=== PATIENT | female | born 1950 | race Caucasian/White ===

== ENCOUNTER → 2016-08-06 | Outpatient (REF) | payer MEDICARE, OTHER ==
[2016-08-06 14:34] LABS: PERCENT SATURATION 18.8 % (13.2-37.4)
== END ==
LOC: M LAB REF 13:13
PROVIDERS: ATTEND Internal Medicine Nephrology
DX: D50.9 Iron deficiency anemia, unspecified (principal)

== ENCOUNTER 2016-08-14 09:08 | Outpatient (CLI) | payer MEDICARE, OTHER ==
[~2016-08-14] VITALS: Ht 160 cm; Wt 118.2 kg
[2016-08-14] MEDS ORDERED: IRON SUCROSE 25 MG in NS 50 ML IV ONE (09:30)
[2016-08-14] MEDS ORDERED: IRON SUCROSE 475 MG in NS 250 ML IV ONE (10:30)
== END 2016-08-14 14:30 | disposition home or self-care (01) ==
LOC: M INFU 09:08
PROVIDERS: ATTEND Internal Medicine Nephrology
DX: D50.9 Iron deficiency anemia, unspecified (principal); Z79.01 Long term (current) use of anticoagulants; Z79.899 Other long term (current) drug therapy
CPT/HCPCS: 96365; 96366; J1756

== ENCOUNTER → 2017-04-19 | Outpatient (REF) | payer MEDICARE, OTHER ==
[2017-04-23 17:47] LABS: FOLATE 13.2 NG/ML
== END ==
LOC: M LAB REF 16:52
PROVIDERS: ATTEND Family Medicine
DX: D64.9 Anemia, unspecified (principal)

== ENCOUNTER → 2017-05-07 | Outpatient (REF) | payer MEDICARE, OTHER | LOC: M LAB REF 17:09 | PROVIDERS: ATTEND Internal Medicine Nephrology | DX: N18.3 Chronic kidney disease, stage 3 (moderate) (principal); D50.9 Iron deficiency anemia, unspecified ==

== ENCOUNTER 2017-06-03 10:08 | Outpatient (CLI) | payer MEDICARE, OTHER ==
[2017-06-03] MEDS: IRON SUCROSE 25 MG in NS 50 ML IV (10:41)
[2017-06-03] MEDS: IRON SUCROSE 475 MG in NS 250 ML IV (11:59)
== END 2017-06-03 15:45 | disposition home or self-care (01) ==
LOC: M INFU 10:08
DX: D50.9 Iron deficiency anemia, unspecified (principal); Z79.899 Other long term (current) drug therapy; Z79.82 Long term (current) use of aspirin; Z91.048 Other nonmedicinal substance allergy status; Z88.1 Allergy status to other antibiotic agents
CPT/HCPCS: 96365

== ENCOUNTER → 2017-11-26 | Outpatient (CLI) | payer MEDICARE, OTHER | LOC: M RAD 09:03 | DX: N18.3 Chronic kidney disease, stage 3 (moderate) (principal); I12.9 Hypertensive chronic kidney disease with stage 1 through stage 4 chronic kidney disease, or unspecified chronic kidney disease | CPT/HCPCS: 76775 ==

== ENCOUNTER → 2018-10-31 | Outpatient (REF) | payer MEDICARE, OTHER ==
[~2018-10-31] MED LIST: AMLO2.5T3 PO; ASPI81TA85 PO; CARV6.25 PO; CITA20TA6 PO; DICL1GEL3 TD; FEBU40TA PO; LISI40TA PO; MAGN250T9 PO; MULTCAP8 PO; NYST1POW9 TOP; OMEP20CA3 PO; SIMV20TA2 PO; SYNT100T PO; TORS10TA3 PO; TRAZ-252 PO; TRIA1OI TOP; VITA-182 PO; XALA0.007 OU; XARE15TA PO
== END ==
LOC: M LAB REF 17:19
PROVIDERS: ATTEND Family Medicine
DX: M10.9 Gout, unspecified (principal)

== ENCOUNTER → 2018-12-07 | Outpatient (CLI) | payer MEDICARE, OTHER ==
[~2018-12-07] MED LIST changes: -OMEP20CA3 PO; +OMEP20CA4 PO
--- NOTE | 2018-12-07 12:22 | REP ---
CHEST FLUOROSCOPY, SNIFF TEST: Breathing is visualized directly under fluoroscopy with deep inspiration and expiration. At rest there is fairly significant elevation of the right hemidiaphragm with right basilar atelectatic change. With deep inspiration the left hemidiaphragm moves appropriately inferiorly. The right hemidiaphragm demonstrates slight paradoxical elevation and inspiration. Similarly with deep expiration the left hemidiaphragm was appropriately upward while the right hemidiaphragm moves slightly inferiorly in a paradoxical manner. 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 There is appropriate left diaphragmatic excursion. Fluoroscopy time 0.8 minutes. Electronically Signed by Cedric Jansen MD 12/09/2018 12:56 P
== END ==
LOC: M RAD 10:39
PROVIDERS: ATTEND Internal Medicine Pulmonary Disease
DX: J98.6 Disorders of diaphragm (principal)

== ENCOUNTER → 2019-02-06 | Outpatient (CLI) | payer MEDICARE, OTHER ==
[~2019-02-06] MED LIST changes: +CVS50CAP PO; +CYAN2500 SL; +D 1010004 PO; -FEBU40TA PO; +FEBU40TA4 PO; +HYDR-4571 PO; +MULTCAP PO
[2019-02-06 13:52] LABS: HEMATOCRIT 37.6 % (36.0-47.0); HEMOGLOBIN 12.1 g/dl (12.0-15.5); MEAN CORPUSCULAR HEMOGLOBIN 31.7 pg (27.0-33.0); MEAN CORPUSCULAR HGB CONC 32.2 g/dl (32.0-36.5); MEAN CORPUSCULAR VOLUME 98.4 fl (80.0-96.0); PLATELET COUNT, AUTOMATED 299 10^3/uL (150-450); RED BLOOD COUNT 3.82 10^6/uL (4.00-5.40); WHITE BLOOD COUNT 5.9 10^3/uL (4.0-10.0)
[2019-02-06 14:12] LABS: INR 1.07; PROTHROMBIN TIME 13.6 SECONDS (11.8-14.0)
[2019-02-06 14:13] LABS: PARTIAL THROMBOPLASTIN TIME 25.4 SECONDS (25.0-38.4)
[2019-02-06 14:17] LABS: CALCIUM LEVEL 9.2 MG/DL (8.8-10.2); CREATININE FOR GFR 1.57 MG/DL (0.55-1.30); GLOMERULAR FILTRATION RATE 34.9 (>45)
[2019-02-06 14:24] LABS: APPEARANCE, URINE CLEAR (CLEAR); BACTERIA, URINE AUTO NEGATIVE (NEGATIVE); BILIRUBIN, URINE AUTO NEGATIVE (NEGATIVE); BLOOD, URINE BLOOD NEGATIVE (NEGATIVE); COLOR, URINE YELLOW (YELLOW); GLUCOSE, URINE (UA) AUTO NEGATIVE (NEGATIVE); KETONE, URINE AUTO NEGATIVE (NEGATIVE); LEUKOCYTE ESTERASE, URINE AUTO NEGATIVE (NEGATIVE); MUCUS, URINE SMALL (NEGATIVE); NITRITE, URINE AUTO NEGATIVE (NEGATIVE); PROTEIN, URINE AUTO NEGATIVE (NEGATIVE); RBC, URINE AUTO 1 /HPF (0-3); SPECIFIC GRAVITY URINE AUTO 1.014 (1.002-1.035); SQUAMOUS EPITHELIAL CELL UR AU 2 /HPF (0-6); UROBILINOGEN, URINE AUTO 0.2 mg/dL (0.0-2.0); WBC, URINE AUTO 1 /HPF (0-3)
[2019-02-06 14:25] LABS: ABG BASE EXCESS -1.5 (-2.0-2.0); ABG HCO3 22.5 MEQ/L (22.0-26.0); ABG O2 SATURATION 96.8 % (95.0-99.0); ABG PARTIAL PRESSURE CO2 35.6 mmHg (35.0-45.0); ABG PARTIAL PRESSURE O2 86.2 mmHg (75.0-100.0); ABG STANDARD HCO3 23.2 MEQ/L (22.0-26.0); ABG TOTAL CO2 23.6 MEQ/L (23.0-31.0); ABG pH (ARTERIAL) 7.419 UNITS (7.350-7.450)
--- NOTE | 2019-02-06 16:13 | REP ---
CHEST, TWO VIEWS: Two views of the chest are performed. Comparison 01/07/2011. There is moderate elevation of the right hemidiaphragm. There is right basilar atelectatic change. The left lung is clear. Heart is not significantly enlarged. Mediastinal silhouette is unremarkable. There are degenerative changes of the spine. IMPRESSION: Elevation of right hemidiaphragm with right base atelectatic change. Electronically Signed by Cedric Jansen MD 02/06/2019 04:26 P
--- NOTE | 2019-02-07 09:00 | ECGEPIP ---
[facility] Test Date: 2019-02-06 Pat Name: YOHAN ESCAMILLA Department: Room: - Gender: Female Configuration Management Administrator: : 1950 Requested By: James Egan Order Number: [id number] Reading MD: Mal Will Measurements Intervals [place] Rate: 60 P: 20 AL: 178 QRS: 64 QRSD: 113 T: 51 QT: 410 QTc: 411 Interpretive Statements SINUS RHYTHM Intraventricular conduction delay Nonspecific T wave abnormality Comparison tracing not on file Electronically Signed on 02-07-2019 8:59:37 EDT by Mal Will
== END ==
LOC: EDSTATUS 07:48 → M ADMPAT 10:00
PROVIDERS: ATTEND Thoracic Surgery (Cardiothoracic Vascular Surgery)
DX: J98.6 Disorders of diaphragm (principal)

== ENCOUNTER 2019-02-14 06:10 | Inpatient (IN) | payer MEDICARE, OTHER ==
[2019-02-06 14:00] VITALS: BP 144/85
[2019-02-14] VITALS (10 sets, daily range): BP systolic 101–114; BP diastolic 51–57
[~2019-02-14] VITALS: Ht 157.5 cm; Wt 116.1 kg
[~2019-02-14 06:10] MED LIST changes: -HYDR-4571 PO; +LIDOCAINE 1% MDV 20ML VIAL SQ PRN; +LR 1,000 ML IV ONE; +MIDAZOLAM INJ 2 MG/2 ML VIAL (J2250) IV SCH; +VANCOMYCIN HCL 1,000 MG, VIAL MATE ADAPTER 1 EACH in D5W 250 ML IV ONE; +fentaNYL 100 MCG/2 ML INJECTION (J3010) IV SCH
[2019-02-14] MEDS ORDERED: MIDAZOLAM INJ 2 MG/2 ML VIAL (J2250) As Ordered ONE (06:42)
[2019-02-14] MEDS ORDERED: fentaNYL 100 MCG/2 ML INJECTION (J3010) As Ordered ONE (06:42)
[2019-02-14] MEDS ORDERED: BUPIVACAINE/EPIN 0.25% 30 ML VIAL As Ordered ONE (06:52)
[2019-02-14] MEDS ORDERED: CETACAINE SPRAY 5GM As Ordered ONE (06:52)
[2019-02-14] MEDS ORDERED: BUPIVACAINE LIPOSOME/PF 1.3% 20ML VIAL (13.3MG/ML)(EXPAREL)(C9290 PER1MG) As Ordered ONE (06:53)
[2019-02-14] MEDS ORDERED: BUPIVACAINE HCL 0.5% 30 ML VIAL As Ordered ONE (06:53)
[2019-02-14] MEDS ORDERED: fentaNYL 250 MCG/5 ML INJECTION (J3010) As Ordered ONE (06:59)
[2019-02-14] MEDS ORDERED: LIDOCAINE 2% INJ 100 MG/5 ML SDV (FOR ANES.) As Ordered ONE (07:01)
[2019-02-14] MEDS ORDERED: ROCURONIUM BROMIDE 50 MG/5 ML VIAL As Ordered ONE ×3 (07:01→11:17)
[2019-02-14] MEDS ORDERED: dexameTHASONE 4 MG/ML 1ML VIAL (J1100) As Ordered ONE (07:01)
[2019-02-14] MEDS ORDERED: PROPOFOL 200 MG/20 ML VIAL As Ordered ONE (07:01)
[2019-02-14] MEDS ORDERED: ONDANSETRON 4MG/2ML VIAL (J2405) As Ordered ONE (07:01)
[2019-02-14] MEDS ORDERED: DESFLURANE 240 ML INHALANT As Ordered ONE (07:27)
[2019-02-14] MEDS ORDERED: MUPIROCIN 2% OINT 22 GM TUBE As Ordered ONE (08:22)
[2019-02-14] MEDS ORDERED: METOCLOPRAMIDE INJ 10MG/2ML VIAL (J2765) IV PRN (09:00)
[2019-02-14] MEDS ORDERED: ONDANSETRON 4MG/2ML VIAL (J2405) IV PRN ×4 (09:00→14:30)
[2019-02-14] MEDS ORDERED: WALLBOXKEY XX PRN (09:00)
[2019-02-14] MEDS ORDERED: NALOXONE INJ 0.4 MG/1 ML VIAL (J2310) IV PRN (09:00)
[2019-02-14] MEDS: LISINOPRIL 40 MG TAB PO SCH (09:00)
[2019-02-14] MEDS ORDERED: LATANOPROST 0.005% OPHTH SOLN 2.5 ML OU SCH (09:00)
[2019-02-14] MEDS ORDERED: EPIDURAL/PCA KEYS XX PRN (09:00)
[2019-02-14] MEDS ORDERED: ePHEDrine SULFATE 25 MG/5 ML(5MG/ML) SYRINGE As Ordered ONE (09:36)
[2019-02-14] MEDS ORDERED: PHENYLephrine HCL 500 MCG/5 ML (100MCG/ML) SYRINGE (J2370) As Ordered ONE (09:37)
[2019-02-14] MEDS ORDERED: BUPIVACAINE HCL 0.25% 30 ML VIAL As Ordered ONE (10:19)
[2019-02-14] MEDS ORDERED: SUGAMMADEX SODIUM 500 MG/5 ML VIAL (BRIDION) As Ordered ONE (11:18)
[2019-02-14] MEDS ORDERED: KETOROLAC 30 MG/ML VIAL (J1885) IV SCH (12:00)
[2019-02-14] MEDS ORDERED: TRIAMCINOLONE ACET 0.1% OINTMENT 15 GM TOP PRN (12:15)
[2019-02-14] MEDS: FENTANYL/BUPIVACAINE/NACL BAG 250 ML EPIDURAL SCH ×2 (12:36→13:25)
[2019-02-14 13:00] LABS: BASO % 0.2 % (0.0-1.0); EOS % 0.1 % (0.0-3.0); HEMATOCRIT 38.4 % (36.0-47.0); HEMOGLOBIN 12.1 g/dl (12.0-15.5); LYMPH # 0.7 10^3/uL (1.5-5.0); LYMPH % 7.3 % (24.0-44.0); MEAN CORPUSCULAR HEMOGLOBIN 30.9 pg (27.0-33.0); MEAN CORPUSCULAR HGB CONC 31.5 g/dl (32.0-36.5); MONO # 0.3 10^3/uL (0.0-0.8); MONO % 2.9 % (0.0-5.0); NEUTROPHILS # 8.4 10^3/uL (1.5-8.5); NEUTROPHILS % 89.3 % (36.0-66.0); PLATELET COUNT, AUTOMATED 259 10^3/uL (150-450); RED BLOOD COUNT 3.92 10^6/uL (4.00-5.40); WHITE BLOOD COUNT 9.4 10^3/uL (4.0-10.0)
[2019-02-14] MEDS ORDERED: PERCOCET 5MG/325MG TAB PO PRN ×4 (13:00→14:30)
[2019-02-14] MEDS ORDERED: HEPARIN SOD (PORCINE) 5000 UNITS/ML VIAL SC SCH (13:00)
[2019-02-14] MEDS ORDERED: LEVALBUTEROL 1.25 MG/0.5 ML CONCENTRATE NEB NEB PRN (13:00)
[2019-02-14] MEDS ORDERED: LR 1,000 ML IV SCH ×2 (13:00→14:30)
[2019-02-14] MEDS ORDERED: BISACODYL 10 MG SUPP PR PRN (13:00)
[2019-02-14] MEDS ORDERED: ACETAMINOPHEN TAB 650MG DOSE (2X325MG) PO PRN (13:00)
[2019-02-14] MEDS: fentaNYL 100 MCG/2 ML INJECTION (J3010) IV PRN ×4 (13:00→13:15)
[2019-02-14] MEDS ORDERED: HYDROMORPHONE HCL 0.5 MG/ 0.5 ML SYRINGE (J1170 PER 1) IV PRN ×2 (13:00→14:30)
[2019-02-14] MEDS ORDERED: NORCO, ANEXSIA 5/325MG TABLET (HYDROcodone/ACETAMINOPHEN) PO PRN (13:00)
[2019-02-14] MEDS ORDERED: KCL 20MEQ IN D5/NS 1000ML 1,000 ML IV SCH (13:00)
[2019-02-14] MEDS ORDERED: zolPIDEM TARTRATE 5 MG TAB PO PRN (13:00)
[2019-02-14 13:04] LABS: ABG HCO3 23.2 MEQ/L (22.0-26.0); ABG O2 SATURATION 95.2 % (95.0-99.0); ABG PARTIAL PRESSURE CO2 45.7 mmHg (35.0-45.0); ABG PARTIAL PRESSURE O2 82.4 mmHg (75.0-100.0); ABG TOTAL CO2 24.6 MEQ/L (23.0-31.0); ABG pH (ARTERIAL) 7.323 UNITS (7.350-7.450)
[2019-02-14 13:19] LABS: CALCIUM LEVEL 9.2 MG/DL (8.8-10.2); CREATININE FOR GFR 1.42 MG/DL (0.55-1.30); GLOMERULAR FILTRATION RATE 39.2 (>45); POTASSIUM SERUM 4.1 MEQ/L (3.5-5.1)
[2019-02-14] MEDS ORDERED: fentaNYL 100 MCG/2 ML INJECTION (J3010) IV PRN (14:30)
[2019-02-14] MEDS: SIMVASTATIN 20 MG TAB PO SCH (14:33)
[2019-02-14] MEDS: LEVALBUTEROL 1.25 MG/0.5 ML CONCENTRATE NEB NEB SCH ×2 (14:49→19:29)
--- NOTE | 2019-02-14 15:19 | REP ---
PORTABLE CHEST: AP portable view of the chest is performed and compared to a prior study of 02/06/2019. There is a right chest tube now seen overlying the right lower lung. Another chest tube just superior to that demonstrates side port just lateral to the ribcage. There is a very small right pneumothorax. The left hemidiaphragm is slightly higher than the right. There appear to be scattered mild atelectatic changes in both lungs. Heart and mediastinum appear magnified. Electronically Signed by Cedric Jansen MD 02/14/2019 04:00 P
[2019-02-14] MEDS: CARVedilol 6.25 MG TAB PO SCH (21:00)
[2019-02-14] MEDS: LATANOPROST 0.005% OPHTH SOLN 2.5 ML OU SCH (21:27)
[2019-02-14] MEDS: HEPARIN SOD (PORCINE) 5000 UNITS/ML VIAL SC SCH (21:28)
[2019-02-14] MEDS: DOCUSATE SODIUM 100 MG CAP PO SCH (21:28)
[2019-02-14] MEDS: diphenhydrAMINE INJ 50MG/ML VIAL (J1200) IV PRN (21:35)
[2019-02-15] VITALS (7 sets, daily range): BP systolic 100–119; BP diastolic 53–57
[2019-02-15] MEDS: LEVALBUTEROL 1.25 MG/0.5 ML CONCENTRATE NEB NEB SCH ×4 (00:26→20:12)
[2019-02-15 05:28] LABS: HEMATOCRIT 33.4 % (36.0-47.0); HEMOGLOBIN 10.8 g/dl (12.0-15.5); LYMPH # 0.9 10^3/uL (1.5-5.0); LYMPH % 9.1 % (24.0-44.0); MEAN CORPUSCULAR HEMOGLOBIN 31.9 pg (27.0-33.0); MEAN CORPUSCULAR HGB CONC 32.3 g/dl (32.0-36.5); MEAN CORPUSCULAR VOLUME 98.5 fl (80.0-96.0); MONO # 0.8 10^3/uL (0.0-0.8); MONO % 8.4 % (0.0-5.0); NEUTROPHILS # 8.1 10^3/uL (1.5-8.5); NEUTROPHILS % 82.2 % (36.0-66.0); PLATELET COUNT, AUTOMATED 223 10^3/uL (150-450); RED BLOOD COUNT 3.39 10^6/uL (4.00-5.40); WHITE BLOOD COUNT 9.9 10^3/uL (4.0-10.0)
[2019-02-15 05:55] LABS: CALCIUM LEVEL 8.7 MG/DL (8.8-10.2); CREATININE FOR GFR 1.36 MG/DL (0.55-1.30); GLOMERULAR FILTRATION RATE 41.2 (>45); POTASSIUM SERUM 4.7 MEQ/L (3.5-5.1)
[2019-02-15 05:59] LABS: ABG BASE EXCESS -1.7 (-2.0-2.0); ABG HCO3 23.7 MEQ/L (22.0-26.0); ABG O2 SATURATION 98.6 % (95.0-99.0); ABG PARTIAL PRESSURE O2 138.7 mmHg (75.0-100.0); ABG STANDARD HCO3 23.1 MEQ/L (22.0-26.0); ABG TOTAL CO2 25.1 MEQ/L (23.0-31.0)
--- NOTE | 2019-02-15 08:56 | REP ---
PA and lateral chest: Comparison is 02/14/2019. There are a few right thoracotomy tubes as previously. The side-hole of the inferior most thoracotomy tube is at the pleural surface along the right lateral chest wall and the tube appears to have retracted slightly from the prior study. The side-hole of the more superior thoracotomy tube is within the soft tissues along the right lateral chest wall as previously. There is a small volume of subcutaneous emphysema inferolaterally on the right, unchanged. I suspect there is a small sub pulmonic pneumothorax on the right. There is no apical pneumothorax. The right lung is otherwise clear. There is minor atelectasis inferiorly in the left lung, left lung otherwise clear. Cardiac size is normal. The leroy, mediastinum, skeletal structures are unremarkable. There is an epidural catheter, unchanged. Electronically Signed by Cedric Cameron MD 02/15/2019 08:48 A
[2019-02-15] MEDS: LISINOPRIL 40 MG TAB PO SCH (09:00)
[2019-02-15] MEDS ORDERED: traZODone 50 MG TAB PO SCH (09:00)
[2019-02-15] MEDS: MOM 30ML SUSPENSION UDC PO SCH (09:00)
[2019-02-15] MEDS: CARVedilol 6.25 MG TAB PO SCH ×2 (09:00→20:34)
--- NOTE | 2019-02-15 09:03 | IPN ---
DATE: 02/15/2019 This is the first postoperative day for Mrs. Hutchins who has had a stable and uneventful night of surgery. Today, she is actually pain free and sitting up very comfortably. She states she is breathing better. Her vital signs show a maximum temperature (T-max) of 98.6 with a heart rate that ranges between 76 and 80 and in sinus rhythm, respiratory rate of 16-18 without the use of accessory muscles, who is 94-96% saturated on 2 liters of nasal cannula and has blood pressures ranging between 119/57 to 106/54. Her intake and output over the past 24 hours is recorded as 3635 in and 860 out for a positivity of 2800 mL. She has put out a total of 310 mL from the chest tube up to midnight and 80 mL since midnight. She weighs 115.4 kg today compared to 112 kg yesterday. On physical examination, her lungs show faint crackles during inspiration on the right side which mostly clear with coughing. Percussion note is full to the diaphragm. Cardiac exam is without murmurs, clicks, gallops or rubs. I cannot feel his point of maximum impulse (PMI). S1 and S2 are normal. Abdomen is soft and nontender. Bowel sounds are present but very hypoactive. She has not had flatus. No costovertebral angle (CVA) tenderness. There is no hepatomegaly that I can feel through obesity. Extremities show 1+ pretibial edema with no calf tenderness. No differential swelling of the upper extremities. Skin is warm, dry and perfused without cyanosis or mottling including that of the nail beds and knees. Neck is supple. There is no jugular venous distention. No subcutaneous emphysema. Trachea is midline. Mouth shows her mucous membranes to be pink and moist. Lips and commissures are without lesions. There is no thrush. Neurologic shows II-XII intact along with gross motor and gross sensation intact. Gait is not tested. Psychiatric showed her to be awake, alert and oriented times three with appropriate and affect and conversational. Her white count today is 9.9 with hemoglobin and hematocrit of 10.8 and 33.4 respectively with a platelet count of 223. Differential shows 82% neutrophils, 9% lymphocytes, 8% monocytes. There are no immature forms or toxic granulations. Her electrolytes are essentially normal with a BUN and creatinine of 27 and 1.36, improved from yesterday's 31 and 1.42. Glucose is 126 with calcium 8.7. Blood gases today show a pH 7.36, pCO2 43, pO2 138. Base excess is -1.7. Her chest x-ray shows her lungs fully expanded to the chest wall. There is a slight opacity at the right costophrenic angle on the PA view. It looks to be atelectasis. It could also be the imbrication of the diaphragm. There is no subcutaneous emphysema and the mediastinum is in the midline. The lung is much more expanded to the chest wall than it was preoperatively and her right diaphragm is now at the level of the left diaphragm. IMPRESSION: 1. Right diaphragmatic paralysis. 2. Hypertension. 3. Prior atrial fibrillation status post ablation. 4. Postop day #1 status post diaphragmatic plication. 5. 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 6. Gastroesophageal reflux disease. PLAN AND DISCUSSION: I will transfer her to the progressive care unit (PCU) today. I will discontinue the arterial line. Will continued her chest tube on suction
--- NOTE | 2019-02-15 09:26 | RO ---
DATE OF PROCEDURE: 02/14/2019 PREPROCEDURE DIAGNOSIS: Right diaphragmatic paralysis. POSTPROCEDURE DIAGNOSIS: Right diaphragmatic paralysis. PROCEDURE: Right diaphragmatic plication via thoracotomy. Bronchoscopy and five-level rib block. SURGEON: Dr. James Spain. DETECTIVE CAPTAIN: ANESTHESIA: General. FINDINGS: The diaphragm was quite floppy. It was plicated to reduce its extent in the chest. Bronchoscopy revealed a normal branch and tracheobronchial tree without any endobronchial lesions and with scant secretions. DESCRIPTION OF PROCEDURE: Under satisfactory general anesthesia and single lumen tube endotracheal intubation, bronchoscope was placed into the tracheobronchial tree with the above results. Each segment and side segment was thoroughly inspected and there were no endobronchial lesions. The patient was then turned to the left lateral decubitus position and prepped and draped in usual sterile fashion. Three thoracostomy incisions were first made with the fluoroscope being placed just below the scapula and in the proximal 5th intercostal space. Insufflation was applied and the diaphragm could be assessed and the position of the incision could be determined. The diaphragm was marked with clips where it was felt that it would plicate and come together. Incision was then made under fluoroscopic control. Latissima dorsi was divided. It was a posterolateral incision. The diaphragm was visualized. Where the clips had been placed, the first suture of #2-0 Prolene with pericardium pledgets was then placed as a U stitch. This then started the plication which went from anteromedial to posterolateral. Approximately 20 stitches were needed. The posterior portion of the diaphragm was imbricated beneath the diaphragm into the abdomen and the anteromedial portion was situated above the diaphragm. The anteromedial portion of the plication was then tacked down with the same pledget sutures as the plication was done. This was a slow and tedious process of assessing each stitch and the tension on the diaphragm and the chest wall. A five-level rib block was then placed consisting of Marcaine and Exparel. Two chest tubes were placed, one posterolaterally in the costophrenic angle and one anteriorly. Both were 24 tubes, one curved, one straight. After achieving adequate hemostasis, the lung was re-inflated and the ribs were re-approximated by use of #1-0 Prolene [id number] pericostal sutures. Latissimus dorsi by the use of running 0 Vicryl suture, subcutaneous tissue was use of #3-0 Vicryl suture and the skin by use of #3-0 Monocryl subcuticular suture. The patient tolerated the procedure well and left the operating room in satisfactory condition for the recovery room.
[2019-02-15] MEDS: DOCUSATE SODIUM 100 MG CAP PO SCH ×2 (09:37→21:12)
[2019-02-15] MEDS: LEVOTHYROXINE 100MCG TABLET (0.1MG) PO SCH (09:37)
[2019-02-15] MEDS: CitaloPRAM (CeleXA) 20 MG TAB PO SCH (09:37)
[2019-02-15] MEDS: PANTOPRAZOLE 40MG TAB (PROTONIX) PO SCH (09:37)
[2019-02-15] MEDS: SIMVASTATIN 20 MG TAB PO SCH (09:37)
[2019-02-15] MEDS: HEPARIN SOD (PORCINE) 5000 UNITS/ML VIAL SC SCH ×2 (09:38→21:13)
[2019-02-15] MEDS: FENTANYL/BUPIVACAINE/NACL BAG 250 ML EPIDURAL SCH (13:06)
[2019-02-15] MEDS: diphenhydrAMINE INJ 50MG/ML VIAL (J1200) IV PRN (16:54)
[2019-02-15] MEDS: LATANOPROST 0.005% OPHTH SOLN 2.5 ML OU SCH (21:12)
[2019-02-15] MEDS: traZODone 50 MG TAB PO SCH (21:12)
[2019-02-15] MEDS ORDERED: FLUBLOK(EGG FREE)(QUAD)INFLUENZA VACC 0.5ML SYRINGE (90682)18YRS&OLDER IM PRN (23:45)
[2019-02-16] VITALS: BP 117/56
[2019-02-16] MEDS: LEVALBUTEROL 1.25 MG/0.5 ML CONCENTRATE NEB NEB SCH ×4 (02:20→20:17)
[2019-02-16 04:00] VITALS: BP 92/49
[2019-02-16 05:56] LABS: BASO % 0.2 % (0.0-1.0); EOS % 0.3 % (0.0-3.0); HEMATOCRIT 32.5 % (36.0-47.0); HEMOGLOBIN 10.6 g/dl (12.0-15.5); LYMPH % 20.7 % (24.0-44.0); MEAN CORPUSCULAR HEMOGLOBIN 32.2 pg (27.0-33.0); MEAN CORPUSCULAR HGB CONC 32.6 g/dl (32.0-36.5); MEAN CORPUSCULAR VOLUME 98.8 fl (80.0-96.0); MONO # 1.1 10^3/uL (0.0-0.8); MONO % 12.1 % (0.0-5.0); NEUTROPHILS # 6.3 10^3/uL (1.5-8.5); NEUTROPHILS % 66.3 % (36.0-66.0); PLATELET COUNT, AUTOMATED 218 10^3/uL (150-450); RED BLOOD COUNT 3.29 10^6/uL (4.00-5.40); WHITE BLOOD COUNT 9.5 10^3/uL (4.0-10.0)
[2019-02-16 06:18] LABS: CALCIUM LEVEL 8.3 MG/DL (8.8-10.2); CREATININE FOR GFR 1.35 MG/DL (0.55-1.30); GLOMERULAR FILTRATION RATE 41.5 (>45); POTASSIUM SERUM 4.5 MEQ/L (3.5-5.1)
[2019-02-16 07:42] VITALS: BP 108/55
--- NOTE | 2019-02-16 08:25 | REP ---
Chest x-ray: Two views. History: Status post dictation of the diaphragm. Comparison chest x-ray February 15, 2019 and February 06, 2019. Findings: EKG electrodes are noted. An epidural catheter is visible. There are two right-sided chest tubes. One of these has its side hole at the lateral rib margin outside the chest and the other chest tube is completely extrathoracic adjacent to the chest wall. These are unchanged. There is discoid atelectasis in the right base. Mild plate-like atelectasis is seen in the left base. Subcutaneous emphysema is noted tracking in the soft tissues along the right axilla and in the base of the neck. Heart is not enlarged. Impression: Two Right chest tubes, one of which is extrathoracic. Bibasilar discoid atelectasis. Electronically Signed by Karl Callahan MD 02/16/2019 08:16 A
[2019-02-16] MEDS: CARVedilol 6.25 MG TAB PO SCH ×2 (09:00→20:05)
[2019-02-16] MEDS: DOCUSATE SODIUM 100 MG CAP PO SCH ×2 (09:00→21:04)
[2019-02-16] MEDS: MOM 30ML SUSPENSION UDC PO SCH (09:00)
[2019-02-16] MEDS: LISINOPRIL 40 MG TAB PO SCH (09:00)
[2019-02-16] MEDS: HEPARIN SOD (PORCINE) 5000 UNITS/ML VIAL SC SCH ×2 (09:49→21:04)
[2019-02-16] MEDS: PANTOPRAZOLE 40MG TAB (PROTONIX) PO SCH (09:49)
[2019-02-16] MEDS: LEVOTHYROXINE 100MCG TABLET (0.1MG) PO SCH (09:49)
[2019-02-16] MEDS: CitaloPRAM (CeleXA) 20 MG TAB PO SCH (09:49)
--- NOTE | 2019-02-16 10:24 | IPN ---
DATE: 02/16/2019 This is now Mrs. Hutchins's second postoperative day. She is very comfortable and her pain is being well controlled with the epidural. She is breathing well. In fact, she states she is breathing better than she was preoperatively. She is now passing flatus but no bowel movement as of yet. There is no abdominal pain. Her vital signs show a maximum temperature (Tmax) of 99.1 with a heart rate that ranges between 78-81 in a sinus rhythm, respiratory rate of 18-20 without the use of accessory muscles, who is 93-94% saturated on 2 liters of nasal cannula and whose blood pressure is ranging between 92/49-117/56. Her intake and output for the past 24 hours has been recorded as 1265 in and 1325 out for a negativity of 60 mL. She has put 185 mL from the chest tube and there is no air leak. Weight 114.8 kg today compared to 115.4 kg yesterday and 112 kg on admission. On physical examination, she has some faint rales and rhonchi on the right side most of which clear with coughing. Percussion note is full to the diaphragm. Left side shows normal vesicular sounds. Cardiac exam is without murmurs, clicks, gallops or rubs. I cannot feel her point of maximum impulse (PMI). S1 and S2 are normal. Abdomen is soft and nontender. Bowel sounds are present. There is no hepatomegaly, no costovertebral angle (CVA) tenderness. Extremities show no pretibial edema, no calf tenderness. No differential swelling of the upper extremities. Skin is warm, dry and perfused without cyanosis or mottling including that of the nail beds and knees. Neck is supple. There is no jugular venous distention, no subcutaneous emphysema. Trachea is midline. Mouth shows her mucous membranes to be pink and moist. Lips and commissures are without lesions. There is no thrush. Eyes show her eyes to be equal and reactive. Extraocular muscles intact. Sclerae nonicteric. Neuro shows II-XII intact along with gross motor and gross sensation intact. Gait is not tested, and psychiatric shows her to be awake, alert and oriented times three with appropriate and affect and conversational. Her white count today is 9.5 with hemoglobin and hematocrit of 10.6 and 32.5, unchanged from yesterday, with a platelet count of 218. Differential shows 66% neutrophils, 20% lymphocytes, and 12% monocytes. There are no immature forms, no toxic granulations. Her electrolytes are normal with a BUN and creatinine of 32 and 1.35, unchanged from yesterday of 27 and 1.36. Glucose is 116 with a calcium of 8.5. There are no blood gases on her today. Her chest x-ray today shows some atelectasis in the right costophrenic angle. The anterior chest tube is now out of the chest. Lung is fully expanded to the chest wall and the right diaphragm is at the level of the left diaphragm. IMPRESSION: 1. Right diaphragmatic paralysis. 2. Postoperative day # 2 status post right diaphragmatic plication. 3. Hypertension. 4. Prior atrial fibrillation status post ablation. 5. 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 6. Gastroesophageal reflux disease. PLAN AND DISCUSSION: It looks as though her chest tubes have slipped outside of her chest. The lung is fully expanded to the chest wall. She has put minimally out, and therefore, I am going to remove the chest tubes.
[2019-02-16 11:58] VITALS: BP 100/53
[2019-02-16] MEDS: FENTANYL/BUPIVACAINE/NACL BAG 250 ML EPIDURAL SCH (11:58)
[2019-02-16 16:00] VITALS: BP 119/65
[2019-02-16 20:00] VITALS: BP 116/57
[2019-02-16] MEDS: LATANOPROST 0.005% OPHTH SOLN 2.5 ML OU SCH (21:03)
[2019-02-16] MEDS: traZODone 50 MG TAB PO SCH (21:04)
[2019-02-16] MEDS: SIMVASTATIN 20 MG TAB PO SCH (21:04)
[2019-02-17] VITALS (7 sets, daily range): BP systolic 112–131; BP diastolic 56–63
[2019-02-17] MEDS: LEVALBUTEROL 1.25 MG/0.5 ML CONCENTRATE NEB NEB SCH ×5 (02:00→23:57)
[2019-02-17 05:10] LABS: BASO % 0.4 % (0.0-1.0); EOS # 0.2 10^3/uL (0.0-0.5); EOS % 2.5 % (0.0-3.0); HEMATOCRIT 32.5 % (36.0-47.0); HEMOGLOBIN 10.4 g/dl (12.0-15.5); LYMPH # 2.2 10^3/uL (1.5-5.0); LYMPH % 28.6 % (24.0-44.0); MEAN CORPUSCULAR HEMOGLOBIN 31.7 pg (27.0-33.0); MEAN CORPUSCULAR VOLUME 99.1 fl (80.0-96.0); MONO # 0.9 10^3/uL (0.0-0.8); MONO % 11.4 % (0.0-5.0); NEUTROPHILS # 4.3 10^3/uL (1.5-8.5); NEUTROPHILS % 56.8 % (36.0-66.0); PLATELET COUNT, AUTOMATED 212 10^3/uL (150-450); RED BLOOD COUNT 3.28 10^6/uL (4.00-5.40); WHITE BLOOD COUNT 7.5 10^3/uL (4.0-10.0)
[2019-02-17 05:29] LABS: CALCIUM LEVEL 8.6 MG/DL (8.8-10.2); CREATININE FOR GFR 1.27 MG/DL (0.55-1.30); GLOMERULAR FILTRATION RATE 44.5 (>45); POTASSIUM SERUM 4.4 MEQ/L (3.5-5.1)
--- NOTE | 2019-02-17 08:15 | REP ---
PA and lateral chest: Comparison is 02/16/2019. One of the two previous right thoracotomy tubes has been removed. The side-hole of the remaining thoracotomy tube is in the soft tissues of the right lateral chest wall, as previously. There is no pneumothorax. There is persisting atelectasis in the right lower lobe, unchanged. The right upper lobe remains clear. Left lung remains clear. Cardiac size is normal. The epidural catheter is unchanged. Impression: No significant interval change except that one of the previous two right thoracotomy tubes has been removed. The side-hole of the remaining right thoracotomy tube is in the soft tissues of the right lateral chest wall, as previously. Electronically Signed by Cedric Cameron MD 02/17/2019 08:06 A
--- NOTE | 2019-02-17 09:34 | IPN ---
DATE: 02/17/2019 This is now Mrs. Hutchins's third postoperative day. Her pain is being again well controlled in that she has almost none. The epidural is still in. Her vital signs show a T-max of 99.5 with a heart rate that ranges between 75 and 61 and is sinus rhythm, respiratory rate of 16 to 20 without the use of accessory muscles, who is 89-95% saturated on 1 liter nasal cannula and whose blood pressure is ranging between 119/65 to 122/59. Her intake and output the past 24 hours has been recorded as 600 in and 1760 out for a negativity of 1100 mL. She has put out 415 mL from her chest tubes. The anterior chest tube was out of the chest and was removed yesterday, and she has only put out 62 mL in the last 8 hours. Weight 114.5 kg today compared to 114.8 kg yesterday. Her physical examination, shows her lungs have equal breath sounds on either side. Percussion note is full to the diaphragm. There is still some faint rhonchi, most of which clear with coughing. Cardiac exam is without murmurs, clicks, gallops or rubs. I cannot feel her point of maximum impulse (PMI). S1 and S2 are normal. Abdomen is soft and nontender. Bowel sounds are present. There is no hepatomegaly, no costovertebral angle (CVA) tenderness. Extremities show no pretibial edema, no calf tenderness. No differential swelling of the upper extremities. Skin is warm, dry and perfused without cyanosis or mottling including that of the nail beds and knees. Neck is supple. There is no jugular venous distention, no subcutaneous emphysema. Trachea is midline. Mouth shows her mucous membranes to be pink and moist. Lips and commissures are without lesions. There is no thrush. Eyes show her eyes to be equal and reactive. Extraocular muscles intact. Sclera nonicteric. Neuro shows II-XII intact along with gross motor and gross sensation intact. Gait is not tested. Psychiatric shows her to be awake, alert and oriented times three with appropriate and affect and conversational. Her chest x-ray today shows more clearing of the right costophrenic angle. Lateral chest tube is half way out the chest. I see no infiltrates per se and the mediastinum is in the midline. Her white count today is 7.5 down from 9.5 yesterday. Hemoglobin and hematocrit are 10.4 and 32.5, unchanged from yesterday, with a platelet count of 212 and stable. Differential shows 56% neutrophils, 28% lymphocytes, and 11% monocytes. There are no immature forms, no toxic granulations. Her electrolytes are essentially normal with a BUN and creatinine that has now normalized at 28 and 1.27. Glucose is 112 with a calcium of 8.6. Even with creatinine down to 1.27, her glomerular filtration rate (GFR) is still calculated at 44. IMPRESSION: 1. Right diaphragmatic paralysis. 2. Postoperative day 3 status post right diaphragmatic plication. 3. Hypertension. 4. Prior atrial fibrillation status post ablation. 5. 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 6. Gastroesophageal reflux disease. PLAN AND DISCUSSION: I will discontinue her chest tube today. Will wean the epidural, discontinue the Ortiz and given her oral analgesia. She and I are quite gratified that her breathing is much better, and she states that she has been able to walk without being short of breath, which is a major change from her preoperative status.
[2019-02-17] MEDS: CARVedilol 6.25 MG TAB PO SCH ×2 (10:10→20:13)
[2019-02-17] MEDS: MOM 30ML SUSPENSION UDC PO SCH (10:10)
[2019-02-17] MEDS: LISINOPRIL 40 MG TAB PO SCH (10:11)
[2019-02-17] MEDS: LEVOTHYROXINE 100MCG TABLET (0.1MG) PO SCH (10:12)
[2019-02-17] MEDS: CitaloPRAM (CeleXA) 20 MG TAB PO SCH (10:12)
[2019-02-17] MEDS: HEPARIN SOD (PORCINE) 5000 UNITS/ML VIAL SC SCH ×2 (10:12→22:19)
[2019-02-17] MEDS: PANTOPRAZOLE 40MG TAB (PROTONIX) PO SCH (10:12)
[2019-02-17] MEDS: DOCUSATE SODIUM 100 MG CAP PO SCH ×2 (10:12→20:13)
[2019-02-17] MEDS: SIMVASTATIN 20 MG TAB PO SCH (20:13)
[2019-02-17] MEDS: LATANOPROST 0.005% OPHTH SOLN 2.5 ML OU SCH (20:13)
[2019-02-17] MEDS: traZODone 50 MG TAB PO SCH (20:13)
[2019-02-18] VITALS: BP 111/55
[2019-02-18 04:00] VITALS: BP 114/58
[2019-02-18 05:34] LABS: BASO % 0.4 % (0.0-1.0); CALCIUM LEVEL 8.5 MG/DL (8.8-10.2); CREATININE FOR GFR 1.21 MG/DL (0.55-1.30); EOS # 0.2 10^3/uL (0.0-0.5); EOS % 3.6 % (0.0-3.0); GLOMERULAR FILTRATION RATE 47.1 (>45); HEMATOCRIT 33.5 % (36.0-47.0); HEMOGLOBIN 10.8 g/dl (12.0-15.5); LYMPH # 1.4 10^3/uL (1.5-5.0); LYMPH % 20.2 % (24.0-44.0); MEAN CORPUSCULAR HEMOGLOBIN 30.6 pg (27.0-33.0); MEAN CORPUSCULAR HGB CONC 32.2 g/dl (32.0-36.5); MEAN CORPUSCULAR VOLUME 94.9 fl (80.0-96.0); MONO # 0.6 10^3/uL (0.0-0.8); MONO % 9.5 % (0.0-5.0); NEUTROPHILS # 4.4 10^3/uL (1.5-8.5); PLATELET COUNT, AUTOMATED 260 10^3/uL (150-450); RED BLOOD COUNT 3.53 10^6/uL (4.00-5.40); WHITE BLOOD COUNT 6.7 10^3/uL (4.0-10.0)
[2019-02-18 08:00] VITALS: BP 128/72
[2019-02-18] MEDS: LEVALBUTEROL 1.25 MG/0.5 ML CONCENTRATE NEB NEB SCH (08:11)
[2019-02-18] MEDS: MOM 30ML SUSPENSION UDC PO SCH (09:00)
[2019-02-18] MEDS ORDERED: HYDR-4571 PO (09:14)
[2019-02-18] MEDS: PANTOPRAZOLE 40MG TAB (PROTONIX) PO SCH (09:15)
[2019-02-18] MEDS: DOCUSATE SODIUM 100 MG CAP PO SCH (09:15)
[2019-02-18] MEDS: CitaloPRAM (CeleXA) 20 MG TAB PO SCH (09:15)
[2019-02-18] MEDS: LEVOTHYROXINE 100MCG TABLET (0.1MG) PO SCH (09:15)
[2019-02-18] MEDS: HEPARIN SOD (PORCINE) 5000 UNITS/ML VIAL SC SCH (09:17)
[2019-02-18 09:23] VITALS: BP 128/72
[2019-02-18] MEDS: CARVedilol 6.25 MG TAB PO SCH (09:23)
[2019-02-18] MEDS: LISINOPRIL 40 MG TAB PO SCH (09:24)
--- NOTE | 2019-02-19 14:47 | DSES ---
DATE OF ADMISSION: 02/14/2019 DATE OF DISCHARGE: 02/18/2019 DISCHARGE DIAGNOSES: 1. Right diaphragmatic paralysis. 2. Postoperative day 5 status post right diaphragmatic plication. 3. Hypertension. 4. Prior atrial fibrillation status post ablation. 5. 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 6. Gastroesophageal reflux disease (GERD). 7. Transient atrial fibrillation the night of discharge. 8. Stage III renal insufficiency. 9. Hypothyroidism. HOSPITAL COURSE: The patient is a 68-year-old who underwent an ablation approximately 4 years ago and who has progressively gotten short of breath. It was noticed that her diaphragm was elevated and it was documented to be paralyzed. The diaphragm was reaching chcf up the chest. She was becoming more and more short of breath. After appropriate counseling, it was recommended that she undergo a diaphragmatic plication. She was therefore taken to the operating room on 02/14/2019 where she underwent a right diaphragmatic plication. The patient's x-ray was spectacularly improved and more importantly, the patient's breathing capacity was markedly improve such that she could walk around the floor without getting short of breath, much better than she was preoperatively. She had a benign postoperative course with her chest tubes being removed on the fourth postoperative day. She was noted to have a short run of atrial fibrillation lasting approximately 2 hours the night of discharge. This spontaneously converted. It was always a controlled rate. She was not aware of the atrial fibrillation. In the light of her last ablation and that she is under cardiologic surveillance, I have recommended that she followup with Dr. Alvarado. She already has an appointment with him next week. She is being discharged today on her home medications which include: - amlodipine 2.5 mg daily - carvedilol 6.25 mg twice a day - vitamin D 1000 units three times a week - citalopram 20 mg daily - docusate 50 mg twice a day and as needed for constipation - Uloric 40 mg daily - Cashion 5-325 every 6 hours as needed for pain - Xalatan one drop both eyes (OU) at bedtime - Synthroid 100 mcg daily - lisinopril 40 mg daily - magnesium oxide 250 mg daily - multivitamins one tab daily - omeprazole 20 mg daily - simvastatin 20 mg daily - torsemide 10 mg daily - trazodone 50 mg at bedtime LABS ON DISCHARGE: The patient's hemoglobin and hematocrit on discharge are 10.8 and 33.5, with a white count of 6.7. Platelet count is 250. Electrolytes are normal today with a BUN and creatinine of 29 and 1.21 with a glomerular filtration rate (GFR) of 47. Her chest x-ray shows the right diaphragm at the same level as the left diaphragm. There is some postoperative atelectatic changes. The patient will return to see me in one week in postoperative followup with a chest x-ray. She has been instructed not to drive and to continue her stool softeners and not to undertake any heavy lifting.
--- NOTE | 2019-02-21 11:19 | REP ---
CHEST PA AND LATERAL: 02/18/2019. Comparison: 02/17/2019, 02/16/2019, 02/15/2019, portable 02/14/2019. Clinical history: Status post diaphragm plication, chest tube removal. Findings: There are no longer any chest tubes in the right side. EKG leads overlie the chest. Lungs are hypoinflated. There are linear and subsegmental atelectatic changes in the right middle lower lobes. Minor subsegmental atelectasis in retrocardiac left lower lobe. Small right effusion suggested. No left effusion. Remainder of the left lung clear. The mid and upper right lung clear. A small air - fluid level in the anterior right chest developed since the chest tube removal. Axillary and right neck base subcutaneous emphysema, mild. Impression: 1. Removal of chest tubes with small anterior right hydropneumothorax and moderate consolidative atelectasis right mid and lower lung zones. Overall mild hypoinflation. No apical pneumothorax. There is some axillary and neck base subcutaneous emphysema. Electronically Signed by Richy Bernard MD 02/18/2019 07:30 P
== END 2019-02-18 11:35 | disposition home or self-care (01) | DRG 165 ==
LOC: M OR 06:10 → M ICU 14:06
PROVIDERS: ADMIT Thoracic Surgery (Cardiothoracic Vascular Surgery); ATTEND Thoracic Surgery (Cardiothoracic Vascular Surgery)
PROC: 0BQT0ZZ Repair Diaphragm, Open Approach (ICD-10-PCS; principal; 2019-02-14 07:30)
DX: J98.6 Disorders of diaphragm (principal); I10 Essential (primary) hypertension; I48.91 Unspecified atrial fibrillation; E03.9 Hypothyroidism, unspecified; K21.9 Gastro-esophageal reflux disease without esophagitis; Z79.899 Other long term (current) drug therapy

== ENCOUNTER → 2019-02-27 | Outpatient (CLI) | payer MEDICARE, OTHER ==
[~2019-02-27] MED LIST changes: +HYDR-4571 PO; -LIDOCAINE 1% MDV 20ML VIAL SQ PRN; -LR 1,000 ML IV ONE; -MIDAZOLAM INJ 2 MG/2 ML VIAL (J2250) IV SCH; -VANCOMYCIN HCL 1,000 MG, VIAL MATE ADAPTER 1 EACH in D5W 250 ML IV ONE; -fentaNYL 100 MCG/2 ML INJECTION (J3010) IV SCH
--- NOTE | 2019-02-27 11:09 | REP ---
PA and lateral chest: Comparison is 02/18/2019. The previous anterior hydropneumothorax is no longer present. There are persistent linear densities inferiorly in the right lung, likely parenchymal scarring. The right costophrenic angle is effaced. This is nonspecific and could rest present. Pleural reaction/fibrosis or a loculated pleural effusion. The posterior sulcus is open and sharp. Left lung is clear. Cardiac size is normal. The leroy, mediastinum, skeletal structures are unremarkable. Impression: The right hydropneumothorax is no longer present. Parenchymal scarring and pleural reactive change/fibrosis/loculated effusion inferiorly in the right lung. Electronically Signed by Cedric Cameron MD 02/27/2019 11:00 A
== END ==
LOC: M SMT 08:47
PROVIDERS: ATTEND Thoracic Surgery (Cardiothoracic Vascular Surgery)
DX: J98.6 Disorders of diaphragm (principal)

== ENCOUNTER → 2019-03-06 | Outpatient (REF) | payer MEDICARE, OTHER ==
[2019-03-06 13:58] LABS: PERCENT SATURATION 11.6 % (13.2-45.0)
== END ==
LOC: M LAB REF 13:10
PROVIDERS: ATTEND Internal Medicine Nephrology
DX: D50.9 Iron deficiency anemia, unspecified (principal)

== ENCOUNTER 2019-03-20 12:32 | Outpatient (CLI) | payer MEDICARE, OTHER ==
[~2019-03-20] VITALS: Ht 162.6 cm; Wt 111.3 kg
[2019-03-20 12:35] VITALS: BP 145/67
[2019-03-20] MEDS ORDERED: IRON SUCROSE 25 MG in NS 50 ML IV ONE (12:45)
[2019-03-20] MEDS ORDERED: IRON SUCROSE 275 MG in NS 250 ML IV ONE (12:45)
[2019-03-20] MEDS ORDERED: VENO20IN IV (13:04)
[2019-03-20 13:35] VITALS: BP 104/60
[2019-03-20 15:15] VITALS: BP 112/63
[2019-03-20 16:15] VITALS: BP 109/61
[2019-03-20 17:15] VITALS: BP 109/70
[2019-03-20 17:40] VITALS: BP 116/55
== END 2019-03-20 17:40 | disposition home or self-care (01) ==
LOC: M INFU 12:32
PROVIDERS: ATTEND Internal Medicine Nephrology
DX: D50.9 Iron deficiency anemia, unspecified (principal); Z88.8 Allergy status to other drugs, medicaments and biological substances; Z91.018 Allergy to other foods; Z91.048 Other nonmedicinal substance allergy status
CPT/HCPCS: 96365; 96366; J1756

== ENCOUNTER → 2019-04-10 | Outpatient (CLI) | payer MEDICARE, OTHER ==
[~2019-04-10] MED LIST changes: +VENO20IN IV
--- NOTE | 2019-04-10 13:45 | REP ---
Sniff test: History: Disorder of the diaphragm. The patient is status post diaphragmatic plication surgery on the right for elevation and paralysis of the right hemidiaphragm. She states that her symptoms are dramatically improved. Comparison sniff test study is reviewed from December 07, 2018. This was preop. Findings: At rest, the right hemidiaphragm is only slightly elevated. There is some mild linear fibrosis versus plate-like atelectasis in the right base. The diaphragmatic position is much improved at rest compared to the prior study. With sniffing, there is normal excursion and vigorous descent of the left hemidiaphragm. There is still slight paradoxical motion and decreased amplitude of motion of the right diaphragm. It's resting position is much more symmetric and improved. Fluoroscopy time used is 0.3 minutes. Impression: Paradoxical motion persists in the right hemidiaphragm consistent with paralysis. However, its resting position is much more symmetrical and improved from the prior study. Electronically Signed by Karl Callahan MD 04/10/2019 05:01 P
== END ==
LOC: M RAD 11:39
PROVIDERS: ATTEND Internal Medicine Pulmonary Disease
DX: J98.6 Disorders of diaphragm (principal)

== ENCOUNTER → 2019-05-02 | Outpatient (REF) | payer MEDICARE, OTHER ==
[~2019-05-02] MED LIST changes: +OMEP-172 PO; -OMEP20CA4 PO; -SIMV20TA2 PO; +SIMV20TA22 PO
== END ==
LOC: M LAB REF 12:46
PROVIDERS: ATTEND Family Medicine
DX: M10.9 Gout, unspecified (principal)

== ENCOUNTER → 2019-09-21 | Outpatient (CLI) | payer MEDICARE, OTHER ==
[~2019-09-21] MED LIST changes: -OMEP-172 PO; +OMEP1CAP73 PO
--- NOTE | 2019-09-21 11:03 | REPPI ---
REASON FOR EXAM: Persistent elevation, right hemidiaphragm. COMPARISON: Multiple, the latest, 03/23/2019. Once again, there is elevation of the diaphragmatic surface of the right lung status quo. Once again, there are chronic curvilinear right basilar density status quo. No acute patchy parenchymal opacities or pleural effusions have developed. The pleural angles remain sharp. The cardiomediastinal is stable. The osseous structures are unchanged. IMPRESSION: Stable chronic appearing changes without evidence of acute cardiopulmonary disease. Electronically Signed by Juan Jose John DO 09/21/2019 11:53 A
== END ==
LOC: M PLAIMG 09:17
PROVIDERS: ATTEND Thoracic Surgery (Cardiothoracic Vascular Surgery)
DX: J98.6 Disorders of diaphragm (principal); Z48.813 Encounter for surgical aftercare following surgery on the respiratory system

== ENCOUNTER → 2020-09-10 | Outpatient (REF) | payer MEDICARE, OTHER ==
[~2020-09-10] MED LIST changes: -ASPI81TA85 PO; +ASPI81TA86 PO; -LISI40TA PO; +LISI40TA4 PO
[2020-09-10 19:27] LABS: PERCENT SATURATION 26.2 % (13.2-45.0)
== END ==
LOC: M LAB REF 17:23
PROVIDERS: ATTEND Internal Medicine Nephrology
DX: D50.9 Iron deficiency anemia, unspecified (principal)

== ENCOUNTER → 2020-11-15 | Outpatient (REF) | payer MEDICARE, OTHER | LOC: M LAB REF 12:53 | PROVIDERS: ATTEND Family Medicine | DX: M10.9 Gout, unspecified (principal) ==

== ENCOUNTER → 2021-03-31 | Outpatient (REF) | payer MEDICARE, OTHER ==
[2021-03-31 14:26] LABS: CALCIUM LEVEL 9.7 MG/DL (8.8-10.2); CREATININE FOR GFR 1.27 MG/DL (0.55-1.30); GLOMERULAR FILTRATION RATE 44.3 (>39); MAGNESIUM LEVEL 1.9 MG/DL (1.8-2.4); POTASSIUM SERUM 4.8 MEQ/L (3.5-5.1)
== END ==
LOC: M LAB REF 13:06
PROVIDERS: ATTEND Physician Assistant
DX: R60.0 Localized edema (principal); I12.9 Hypertensive chronic kidney disease with stage 1 through stage 4 chronic kidney disease, or unspecified chronic kidney disease; M10.9 Gout, unspecified; N18.32 Chronic kidney disease, stage 3b

== ENCOUNTER → 2021-11-26 | Outpatient (REF) | payer MEDICARE, OTHER | LOC: M LAB REF 16:21 | PROVIDERS: ATTEND Family Medicine | DX: D64.9 Anemia, unspecified (principal) ==

== ENCOUNTER → 2022-04-21 | Outpatient (REF) | payer MEDICARE, OTHER | LOC: M LAB REF 13:32 | PROVIDERS: ATTEND Family Medicine | DX: D64.9 Anemia, unspecified (principal) ==

== ENCOUNTER → 2022-09-21 | Outpatient (CLI) | payer MEDICARE, OTHER | LOC: M PLAIMG 14:34 | PROVIDERS: ATTEND Family Medicine | DX: M25.532 Pain in left wrist (principal); M19.032 Primary osteoarthritis, left wrist ==

== ENCOUNTER → 2022-10-20 | Outpatient (REF) | payer MEDICARE, OTHER ==
[2022-10-20 14:17] LABS: URIC ACID 4.4 MG/DL (3.1-7.8)
[2022-10-20 14:23] LABS: FERRITIN 30.8 NG/ML (7.3-270.7)
== END ==
LOC: M LAB REF 13:48
PROVIDERS: ATTEND Family Medicine
DX: D64.9 Anemia, unspecified (principal); M10.9 Gout, unspecified

== ENCOUNTER → 2024-02-23 | Outpatient (REF) | payer MEDICARE ==
[~2024-02-23] MED LIST changes: +DICL100G10 TD; -DICL1GEL3 TD
== END ==
LOC: M PLALAB 15:18
PROVIDERS: ATTEND Nurse Practitioner Family
DX: N73.9 Female pelvic inflammatory disease, unspecified (principal)

== ENCOUNTER → 2024-04-17 | Outpatient (CLI) | payer MEDICARE, OTHER ==
[~2024-04-17] MED LIST changes: +NYST1POW3 TOP; -NYST1POW9 TOP
== END ==
LOC: M WHC 10:15
PROVIDERS: ATTEND Family Medicine
DX: Z12.31 Encounter for screening mammogram for malignant neoplasm of breast (principal); R92.313 Mammographic fatty tissue density, bilateral breasts

== ENCOUNTER → 2024-06-02 | Outpatient (CLI) | payer MEDICARE, OTHER | LOC: M PLAIMG 12:43 | PROVIDERS: ATTEND Family Medicine | DX: R06.02 Shortness of breath (principal); J84.89 Other specified interstitial pulmonary diseases ==

== ENCOUNTER → 2024-08-15 | Outpatient (CLI) | payer MEDICARE, OTHER | LOC: M CARPUL 14:51 | PROVIDERS: ATTEND Registered Nurse | DX: I27.20 Pulmonary hypertension, unspecified (principal); R06.02 Shortness of breath ==

== ENCOUNTER → 2024-12-29 | Outpatient (CLI) | payer MEDICARE, OTHER ==
[~2024-12-29] MED LIST changes: +LISI40TA10 PO; -LISI40TA4 PO
[2024-12-29 12:07] LABS: ABG BASE EXCESS 2.3 (-2.0-2.0); ABG HCO3 27.9 MMOL/L (22.0-26.0); ABG O2 SATURATION 95.7 % (95.0-99.0); ABG PARTIAL PRESSURE CO2 47.3 mmHg (35.0-45.0); ABG PARTIAL PRESSURE O2 80.5 mmHg (75.0-100.0); ABG STANDARD HCO3 26.5 MMOL/L. (22.0-26.0); ABG TOTAL CO2 29.4 MMOL/L (23.0-31.0); ABG pH (ARTERIAL) 7.389 UNITS (7.350-7.450)
== END ==
LOC: M RAD 10:40
PROVIDERS: ATTEND Nurse Practitioner Adult Health
DX: J98.6 Disorders of diaphragm (principal); M47.812 Spondylosis without myelopathy or radiculopathy, cervical region

== ENCOUNTER 2025-02-26 14:16 | Inpatient (IN) | payer MEDICARE, OTHER ==
[~2025-02-26] VITALS: Ht 157.5 cm; Wt 102.2 kg
[2025-02-26 15:03] LABS: BASO # 0.0 10^3/uL (0.0-0.2); BASO % 0.3 % (0.0-1.0); EOS # 0.0 10^3/uL (0.0-0.5); EOS % 0.1 % (0.0-3.0); LYMPH # 0.9 10^3/uL (1.5-5.0); LYMPH % 5.8 % (24.0-44.0); MONO # 1.2 10^3/uL (0.0-0.8); MONO % 7.6 % (2.0-8.0); NEUTROPHILS # 13.5 10^3/uL (1.5-8.5); NEUTROPHILS % 85.4 % (36.0-66.0); PLATELET COUNT, AUTOMATED 354 10^3/uL (150-450)
[2025-02-26 15:36] LABS: ALT/SGPT 33.0 U/L (7.0-40); AST/SGOT 56.0 U/L (<34); CALCIUM LEVEL 10.2 MG/DL (8.3-10.6); CARBON DIOXIDE LEVEL 29.0 MMOL/L (20-31); CHLORIDE LEVEL 96.0 MMOL/L (98-107); CREATININE FOR GFR 1.1 MG/DL (0.55-1.30); GLOMERULAR FILTRATION RATE 52.7 (>39); POTASSIUM SERUM 3.9 MMOL/L (3.5-5.1); SODIUM LEVEL 135.0 MMOL/L (136-145)
[2025-02-26 15:38] LABS: THYROXINE (T4) 8.4 UG/DL (4.5-10.9)
[2025-02-26 16:48] LABS: VENOUS BASE EXCESS 2.2 (-2.0-2.0); VENOUS HCO3 29.3 MMOL/L (23.0-27.0); VENOUS O2 SATURATION 60.5 % (60.0-80.0); VENOUS PARTIAL PRESSURE CO2 56.1 mmHg (38.0-50.0); VENOUS PARTIAL PRESSURE O2 32.9 mmHg (30.0-50.0); VENOUS PH 7.336 UNITS (7.330-7.430); VENOUS STANDARD HCO3 25.5 MMOL/L; VENOUS TOTAL CO2 31.0 MMOL/L (24.0-28.0)
[2025-02-26] MEDS ORDERED: CITA40TA7 PO (17:02)
[2025-02-26] MEDS ORDERED: OXYB-54 PO (17:02)
[2025-02-26] MEDS ORDERED: XARE20TA PO (17:02)
[2025-02-26] MEDS ORDERED: VITA100093 PO (17:02)
[2025-02-26] MEDS ORDERED: ASPI-264 PO (17:03)
[2025-02-26] MEDS ORDERED: HOME MED LIST COMPLETE! XX SCH (17:05)
[2025-02-26] MEDS: LevoFLOXacin IV 750 MG in IV 1 EA IV ONE (17:16)
[2025-02-26] MEDS: IPRATROPIUM 0.5 MG/ALBUTEROL 2.5 MG INH SOL UD 3 ML NEB SCH ×2 (17:19→20:59)
[2025-02-26] MEDS ORDERED: TORSEMIDE 10 MG TABLET PO PRN (18:20)
[2025-02-26 19:16] LABS: CK-MB VALUE MASS 1.2 NG/ML (<3.6)
[2025-02-26 19:18] LABS: CPK CREATINE PHOSPHOKINASE 44.0 U/L (34-145); MB/CK RELATIVE INDEX 2.72 (< OR =4)
[2025-02-26] MEDS: NS (Normal Saline) 0.9% 1,000 ML IV SCH (19:43)
[2025-02-26] MEDS: ASPIRIN 325 MG TAB PO SCH (21:01)
[2025-02-26] MEDS: traZODone 50 MG TAB PO SCH (21:02)
[2025-02-26] MEDS: LATANOPROST 0.005% OPHTH SOLN 2.5 ML OU SCH (22:47)
[2025-02-27] VITALS (14 sets, daily range): BP systolic 109–159; BP diastolic 56–91; TEMP 97.9–98.8; O2SAT 91–96
[2025-02-27] MEDS: LEVOTHYROXINE 100 MCG TABLET (0.1 MG) PO SCH (06:04)
[2025-02-27 06:46] LABS: PLATELET COUNT, AUTOMATED 314 10^3/uL (150-450)
[2025-02-27 07:47] LABS: ALT/SGPT 31.0 U/L (7.0-40); AST/SGOT 53.0 U/L (<34); CALCIUM LEVEL 9.2 MG/DL (8.3-10.6); CARBON DIOXIDE LEVEL 26.0 MMOL/L (20-31); CHLORIDE LEVEL 101.0 MMOL/L (98-107); CREATININE FOR GFR 1.02 MG/DL (0.55-1.30); GLOMERULAR FILTRATION RATE 57.7 (>39); POTASSIUM SERUM 3.8 MMOL/L (3.5-5.1); SODIUM LEVEL 139.0 MMOL/L (136-145)
[2025-02-27] MEDS: OMEPRAZOLE 20MG CAP PO SCH (08:52)
[2025-02-27] MEDS: SIMVASTATIN 20 MG TAB PO SCH (08:52)
[2025-02-27] MEDS: oxyBUTYnin *XL* 5 MG TAB PO SCH (08:58)
[2025-02-27] MEDS ORDERED: ENOXAPARIN 40 MG/0.4 ML SYRINGE (J1650 PER 10MG) SC SCH (09:00)
[2025-02-27] MEDS: RIVAROXABAN 20MG TAB PO SCH (09:00)
[2025-02-27 14:33] LABS: KETONE, URINE AUTO RFX NEGATIVE (NEGATIVE); MUCUS, URINE RFX SMALL (NEGATIVE); NITRITE, URINE AUTO RFX NEGATIVE (NEGATIVE); RBC, URINE AUTO RFX 25 /HPF (0-3); SQUAM EPITHELIAL CELL UR AURFX 9 /HPF (0-6)
[2025-02-27 14:39] LABS: LEUKOCYTE ESTERASE UR AUTO RFX 3+ (NEGATIVE); WBC, URINE AUTO RFX TNTC /HPF (0-3)
[2025-02-27] MEDS: ACETAMINOPHEN 325 MG TAB PO PRN (20:55)
[2025-02-28] VITALS (28 sets, daily range): BP systolic 110–136; BP diastolic 57–73; TEMP 96.9–97.3; O2SAT 91–100
[2025-02-28 07:06] LABS: BASO # 0.0 10^3/uL (0.0-0.2); BASO % 0.4 % (0.0-1.0); EOS # 0.1 10^3/uL (0.0-0.5); EOS % 1.2 % (0.0-3.0); LYMPH # 1.2 10^3/uL (1.5-5.0); LYMPH % 13.2 % (24.0-44.0); MONO # 0.9 10^3/uL (0.0-0.8); MONO % 10.2 % (2.0-8.0); NEUTROPHILS # 6.7 10^3/uL (1.5-8.5); NEUTROPHILS % 73.9 % (36.0-66.0); PLATELET COUNT, AUTOMATED 304 10^3/uL (150-450)
[2025-02-28 07:25] LABS: CALCIUM LEVEL 9.5 MG/DL (8.3-10.6); CARBON DIOXIDE LEVEL 28.0 MMOL/L (20-31); CHLORIDE LEVEL 102.0 MMOL/L (98-107); CREATININE FOR GFR 1.04 MG/DL (0.55-1.30); GLOMERULAR FILTRATION RATE 56.4 (>39); MAGNESIUM LEVEL 1.8 MG/DL (1.8-2.4); POTASSIUM SERUM 3.8 MMOL/L (3.5-5.1); SODIUM LEVEL 140.0 MMOL/L (136-145)
[2025-02-28] MEDS: MIRALAX *UNIT DOSE* 17 GM PACKET PO ONE (10:08)
[2025-02-28] MEDS: NYSTATIN 100,000 UNITS/GM TOPICAL PWD 15 GM TOP SCH (10:09)
[2025-02-28] MEDS: LevoFLOXacin IV 750 MG in IV 1 EA IV SCH (17:46)
[2025-03-01] VITALS (24 sets, daily range): BP systolic 117–140; BP diastolic 65–91; TEMP 97–98.1; O2SAT 86–98
[2025-03-01 05:43] LABS: BASO # 0.0 10^3/uL (0.0-0.2); BASO % 0.5 % (0.0-1.0); EOS # 0.3 10^3/uL (0.0-0.5); EOS % 3.6 % (0.0-3.0); LYMPH # 1.3 10^3/uL (1.5-5.0); LYMPH % 17.5 % (24.0-44.0); MONO # 0.7 10^3/uL (0.0-0.8); MONO % 10.1 % (2.0-8.0); NEUTROPHILS # 4.9 10^3/uL (1.5-8.5); NEUTROPHILS % 66.7 % (36.0-66.0); PLATELET COUNT, AUTOMATED 343 10^3/uL (150-450)
[2025-03-01 06:06] LABS: CALCIUM LEVEL 9.7 MG/DL (8.3-10.6); CARBON DIOXIDE LEVEL 30.0 MMOL/L (20-31); CHLORIDE LEVEL 103.0 MMOL/L (98-107); CREATININE FOR GFR 1.04 MG/DL (0.55-1.30); GLOMERULAR FILTRATION RATE 56.4 (>39); POTASSIUM SERUM 4.1 MMOL/L (3.5-5.1); SODIUM LEVEL 140.0 MMOL/L (136-145)
[2025-03-01] MEDS ORDERED: SENNA 8.6 MG TAB PO PRN (10:45)
[2025-03-01] MEDS: MIRALAX *UNIT DOSE* 17 GM PACKET PO ONE (11:59)
[2025-03-01] MEDS: MAG SULF 1GM/100ML (MAG RUN) 1 GM in IV 1 EA IV ONE (12:01)
[2025-03-01] MEDS: FUROSEMIDE 20 MG/2 ML VIAL IV ONE (12:04)
[2025-03-01] MEDS: traZODone 25MG PER 1/2 TABLET PO ONE (23:47)
[2025-03-02 03:23] VITALS: BP 133/69; TEMP 97.9; O2SAT 93
[2025-03-02 06:29] LABS: BASO # 0.1 10^3/uL (0.0-0.2); BASO % 0.7 % (0.0-1.0); EOS # 0.2 10^3/uL (0.0-0.5); EOS % 3.4 % (0.0-3.0); LYMPH # 1.4 10^3/uL (1.5-5.0); LYMPH % 20.0 % (24.0-44.0); MONO # 0.6 10^3/uL (0.0-0.8); MONO % 9.2 % (2.0-8.0); NEUTROPHILS # 4.5 10^3/uL (1.5-8.5); NEUTROPHILS % 64.8 % (36.0-66.0); PLATELET COUNT, AUTOMATED 436 10^3/uL (150-450)
[2025-03-02 06:52] LABS: CALCIUM LEVEL 9.8 MG/DL (8.3-10.6); CARBON DIOXIDE LEVEL 32.0 MMOL/L (20-31); CHLORIDE LEVEL 102.0 MMOL/L (98-107); CREATININE FOR GFR 0.93 MG/DL (0.55-1.30); GLOMERULAR FILTRATION RATE 64.5 (>39); POTASSIUM SERUM 4.2 MMOL/L (3.5-5.1); SODIUM LEVEL 143.0 MMOL/L (136-145)
[2025-03-02 07:34] VITALS: O2SAT 95
[2025-03-02 10:49] VITALS: BP 137/89
[2025-03-02] MEDS: BISACODYL 10 MG SUPP PR ONE (10:50)
[2025-03-02] MEDS: MIRALAX *UNIT DOSE* 17 GM PACKET PO PRN (10:51)
[2025-03-02 12:35] VITALS: BP 141/67; TEMP 98.1; O2SAT 94
[2025-03-02] MEDS: LACTULOSE 20 GM/30 ML SYRUP UDC PO ONE (15:04)
[2025-03-02] MEDS: FLUZONE HIGH DOSE (65+) 0.5 ML SYRINGE (25-26) IM.IMMUN ONE (15:40)
[2025-03-02] MEDS: PNEUMOC 21-VAL CONJ-DIP CRM/PF 0.5 ML SYRINGE IM.IMMUN ONE (15:41)
[2025-03-02] MEDS ORDERED: LEVO75TAB PO (15:45)
[2025-03-02] MEDS ORDERED: MIRA33506 PO (15:45)
== END 2025-03-02 18:51 | disposition home health service (06) | DRG 871 ==
LOC: M ED 14:16 → M ED INP 18:18 → M PCU 02-27 01:37 → M MSPAV 03-01 15:23
PROVIDERS: ADMIT Internal Medicine; ATTEND Student in an Organized Health Care Education/Training Program
DX: A41.9 Sepsis, unspecified organism (principal); J18.9 Pneumonia, unspecified organism; J96.01 Acute respiratory failure with hypoxia; R07.81 Pleurodynia; M19.90 Unspecified osteoarthritis, unspecified site; R53.81 Other malaise; E03.9 Hypothyroidism, unspecified; M10.9 Gout, unspecified; E78.5 Hyperlipidemia, unspecified; R53.1 Weakness; I10 Essential (primary) hypertension; F32.A Depression, unspecified; J98.6 Disorders of diaphragm; Z79.01 Long term (current) use of anticoagulants; K21.9 Gastro-esophageal reflux disease without esophagitis; I48.91 Unspecified atrial fibrillation; R32 Unspecified urinary incontinence; Z91.010 Allergy to peanuts; Z88.8 Allergy status to other drugs, medicaments and biological substances; Z91.048 Other nonmedicinal substance allergy status; Z79.899 Other long term (current) drug therapy; Z79.82 Long term (current) use of aspirin; Z79.890 Hormone replacement therapy

== ENCOUNTER → 2025-04-27 | Outpatient (CLI) | payer MEDICARE, OTHER ==
[~2025-04-27] MED LIST changes: +ASPI-264 PO; +CITA40TA7 PO; +LEVO75TAB PO; +MIRA33506 PO; +OXYB-54 PO; +VITA100093 PO; +XARE20TA PO
== END ==
LOC: M PLAIMG 12:03 → M PLALAB 12:03
PROVIDERS: ATTEND Nurse Practitioner Adult Health
DX: J18.9 Pneumonia, unspecified organism (principal)